=== PATIENT | male | born 1990 | race Caucasian/White ===

== ENCOUNTER 2019-01-04 14:56 | Emergency (ER) | payer OTHER ==
[2019-01-04] MEDS ORDERED: IBUPROFEN 400 MG TABLET (FP) PO ONE ×3 (15:27→16:33)
--- NOTE | 2019-01-04 15:28 | PDOC ---
Rapid Medical Evaluation Chief Complaint: Cold Symptoms Time Seen by Provider: 01/04/19 15:27 Medical Evaluation: 01/04/19 15:27 I have performed a brief in-person evaluation of this patient. The patient presents with a chief complaint of:sore throat w fever Pertinent physical exam findings:R tonsilar enlargement w/ T 102 F I have ordered the following:motrin, strep sent The patient will proceed to the ED for further evaluation. Discharge Disposition - Diagnosis Pharyngitis Qualifiers: Pharyngitis/tonsillitis etiology: other specified organisms Qualified Code(s): J02.8 - Acute pharyngitis due to other specified organisms - Referrals - Patient Instructions - Post Discharge Activity
[2019-01-04 15:36] VITALS: BP 132/72; PULSE 124; TEMP 102.7; BMI 28.8
[2019-01-04] MEDS ORDERED: PENICILLIN G BENZATHINE 1,200,000 UNIT/2 ML PFS IM ONE (16:29)
[2019-01-04] MEDS ORDERED: DEXAMETHASONE LIQUID 0.5 MG/5 ML 240 ML BULK BOTTLE PO ONE (16:29)
--- NOTE | 2019-01-04 16:32 | PDOC ---
History of Present Illness - General Chief Complaint: Cold Symptoms Stated Complaint: FEVER Time Seen by Provider: 01/04/19 15:27 - History of Present Illness Initial Comments: 01/04/19 16:29 When he 8-year-old male without comorbidities presents for evaluation of sore throat with fever at home. Past History - Past Medical History Allergies/Adverse Reactions: Allergies Allergy/AdvReac Type Severity Reaction Status Date / Time No Known Allergies Allergy Verified 01/04/19 16:25 Home Medications: Ambulatory Orders NK [No Known Home Medication] 01/04/19 COPD: No CHF: No - Suicide/Smoking/Psychosocial Hx Smoking History: Never smoked Have you smoked in the past 12 months: No Information on smoking cessation initiated: No Hx Alcohol Use: No Drug/Substance Use Hx: No Review of Systems - Review of Systems Constitutional: Yes: Fever HEENTM: Yes: Throat Pain *Physical Exam - Vital Signs Last Vital Signs Temp Pulse Resp BP Pulse Ox 102.7 F H 124 H 19 132/72 99 01/04/19 15:26 01/04/19 15:26 01/04/19 15:26 01/04/19 15:26 01/04/19 15:26 - Physical Exam Comments: 01/04/19 16:29 HEAD: NC/AT EYES: Conjuntiva clear NOSE: No d/c THROAT: Moist mucous membrances, oral erythematous with exudate, uvula midline MS: Full ROM in all joints without edema NEUROLOGIC: No gross sensory or motor deficits, NVID SKIN: Normal color and temperature no lesions or rashes Moderate Sedation - Procedure Monitoring Vital Signs: Procedure Monitoring Vital Signs Temperature 102.7 F H 01/04/19 15:26 Pulse Rate 124 H 01/04/19 15:26 Respiratory Rate 19 01/04/19 15:26 Blood Pressure 132/72 01/04/19 15:26 O2 Sat by Pulse Oximetry (%) 99 01/04/19 15:26 ED Treatment Course - Medications Given in the ED: ED Medications Discontinued Medications Generic Name Dose Route Start Last Admin Trade Name Freq PRN Reason Stop Dose Admin Ibuprofen 800 mg 01/04/19 15:27 01/04/19 15:53 Motrin - PO 01/04/19 15:28 800 mg ONCE ONE Administration *DC/Admit/Observation/Transfer Diagnosis at time of Disposition: Strep pharyngitis Pharyngitis Qualifiers: Pharyngitis/tonsillitis etiology: other specified organisms Qualified Code(s): J02.8 - Acute pharyngitis due to other specified organisms - Discharge Dispostion Disposition: HOME Condition at time of disposition: Stable Decision to Admit order: No - Referrals Referrals: Mikie Lockett [Non Staff, Medical] - - Patient Instructions Printed Discharge Instructions: Strep Throat, DI for Strep Throat Additional Instructions: You were treated today with a single dose of penicillin which will cure your strep throat. He did not require further treatment. He will also given a long- acting steroid in the emergency room which will help her pain and fever. He may use warm salt water gargles 5-6 times a day for throat pain is take Tylenol as needed and as directed. Return to the emergency room should symptoms worsen or go unresolved and follow-up with your primary care provider in one to 2 days for further evaluation and treatment options. - Post Discharge Activity
[2019-01-04] MEDS ORDERED: DEXAMETHASONE SOD PHOSPHATE 10 MG/1 ML VIAL ONE (16:33)
[2019-01-04] MEDS ORDERED: PENICILLIN G BENZATHINE 2,400,000 UNIT/4 ML PFS ONE (16:34)
== END 2019-01-04 16:53 | disposition home or self-care (01) ==
LOC: JER 14:56
DX: J02.0 Streptococcal pharyngitis (principal); B95.0 Streptococcus, group A, as the cause of diseases classified elsewhere
CPT/HCPCS: 87880; 96372; 99281-25

== ENCOUNTER 2019-05-29 21:08 | Emergency (ER) | payer OTHER ==
[2019-05-29 21:17] VITALS: BP 131/81; PULSE 76; TEMP 98.3; BMI 31.4
[2019-05-29] MEDS ORDERED: DEXAMETHASONE LIQUID 0.5 MG/5 ML 240 ML BULK BOTTLE PO ONE (21:50)
[2019-05-29] MEDS ORDERED: diphenhydrAMINE HCL 25 MG CAPSULE (FP) PO ONE ×2 (21:50→21:52)
[2019-05-29] MEDS ORDERED: DEXAMETHASONE SOD PHOSPHATE 10 MG/1 ML VIAL ONE (21:52)
--- NOTE | 2019-05-29 21:54 | PDOC ---
History of Present Illness - General Chief Complaint: Itching Stated Complaint: ITCH Time Seen by Provider: 05/29/19 21:16 - History of Present Illness Initial Comments: 05/29/19 21:50 28-year-old male without comorbidities presents for evaluation of a . Rash without systemic symptoms 2 days. Past History - Past Medical History Allergies/Adverse Reactions: Allergies Allergy/AdvReac Type Severity Reaction Status Date / Time No Known Allergies Allergy Verified 05/29/19 21:18 Home Medications: Ambulatory Orders NK [No Known Home Medication] 01/04/19 COPD: No CHF: No - Suicide/Smoking/Psychosocial Hx Smoking History: Never smoked Have you smoked in the past 12 months: No Hx Alcohol Use: No Drug/Substance Use Hx: No Review of Systems - Review of Systems Constitutional: No: Fever Integumentary: Yes: Pruritus, Rash *Physical Exam - Vital Signs Last Vital Signs Temp Pulse Resp BP Pulse Ox 98.3 F 76 18 131/81 99 05/29/19 21:14 05/29/19 21:14 05/29/19 21:14 05/29/19 21:14 05/29/19 21:14 - Physical Exam Comments: 05/29/19 21:51 HEAD: NC/AT EYES: Conjuntiva clear Ears: Canals and TM's normal NOSE: No d/c THROAT: Moist mucous membrances, oral pharanx clear, uvula midline NECK: Supple without adenopathy CARDIAC: S1 S2 LUNGS: CTA Full and Equal breath sounds ABDOMEN: Soft NT ND MS: Full ROM in all joints without edema NEUROLOGIC: No gross sensory or motor deficits, NVID SKIN: Normal color and temperature no lesions sparse raised wheals about the back and arms Medical Decision Making - Medical Decision Making 05/29/19 21:52 This appears to be an ALLERGIC rash. I will treat with steroids and Benadryl and have him follow-up with dermatology *DC/Admit/Observation/Transfer Diagnosis at time of Disposition: Rash due to allergy - Discharge Dispostion Disposition: HOME Condition at time of disposition: Stable Decision to Admit order: No - Referrals Referrals: Tania Pierre MD [Staff Physician] - - Patient Instructions Additional Instructions: This rash appears to be ALLERGIC. He was given a dose of a long-acting steroid. He will also given Benadryl. You may continue Benadryl at home and follow-up with dermatology without fail in 1-2 days. Return to the emergency room for worsening symptoms. - Post Discharge Activity
== END 2019-05-29 21:59 | disposition home or self-care (01) ==
LOC: JERFT 21:08
DX: L23.9 Allergic contact dermatitis, unspecified cause (principal)
CPT/HCPCS: 99282-25

== ENCOUNTER 2019-11-21 08:40 | Emergency (ER) | payer OTHER ==
[2019-11-21 08:55] VITALS: BP 114/67; PULSE 69; TEMP 97.9; BMI 32.3
--- NOTE | 2019-11-21 09:52 | PDOC ---
History of Present Illness - General Chief Complaint: Pain, Acute Stated Complaint: RT SIDE PAIN Time Seen by Provider: 11/21/19 09:43 History Source: Patient Exam Limitations: No Limitations Past History - Travel Traveled outside of the country in the last 30 days: No Close contact w/someone who was outside of country & ill: No - Past Medical History Allergies/Adverse Reactions: Allergies Allergy/AdvReac Type Severity Reaction Status Date / Time No Known Allergies Allergy Verified 05/29/19 21:18 Home Medications: Ambulatory Orders Ibuprofen 800 mg PO TID #30 tablet 11/21/19 Tamsulosin HCl [Flomax] 0.4 mg PO DAILY #7 capsule 11/21/19 COPD: No CHF: No - Immunization History Immunization Up to Date: No - Psycho Social/Smoking Cessation Hx Smoking History: Never smoked Have you smoked in the past 12 months: No Information on smoking cessation initiated: No Hx Alcohol Use: No Drug/Substance Use Hx: No Review of Systems - Review of Systems Able to Perform ROS?: Yes Comments:: 11/21/19 17:08 CONSTITUTIONAL: Absent: fever, chills, diaphoresis, generalized weakness, malaise, loss of appetite HEENT: Absent: rhinorrhea, nasal congestion, throat pain, throat swelling, difficulty swallowing, mouth swelling, ear pain, eye pain, visual Changes CARDIOVASCULAR: Absent: chest pain, loss of consciousness, palpitations, irregular heart rate, peripheral edema RESPIRATORY: Absent: cough, shortness of breath, dyspnea with exertion, orthopnea, wheezing, stridor, hemoptysis GASTROINTESTINAL: Absent: abdominal pain, abdominal distension, nausea, vomiting, diarrhea, constipation, melena, hematochezia GENITOURINARY: Present: Right flank pain Absent: dysuria, frequency, urgency, hesitancy, hematuria, genital pain MUSCULOSKELETAL: Absent: myalgia, arthralgia, joint swelling SKIN: Absent: rash, itching, pallor HEMATOLOGIC/IMMUNOLOGIC: Absent: easy bleeding, easy bruising, lymphadenopathy, frequent infections ENDOCRINE: Absent: unexplained weight gain, unexplained weight loss, heat intolerance, cold intolerance NEUROLOGIC: Absent: headache, focal weakness or paresthesias, dizziness, unsteady gait, seizure, mental status changes, bladder or bowel incontinence PSYCHIATRIC: Absent: anxiety, depression, suicidal or homicidal ideation, hallucinations. Is the patient limited [place] proficient: No *Physical Exam - Vital Signs Last Vital Signs Temp Pulse Resp BP Pulse Ox 97.9 F 69 18 114/67 98 11/21/19 08:52 11/21/19 08:52 11/21/19 08:52 11/21/19 08:52 11/21/19 08:52 - Physical Exam 11/21/19 17:08 GENERAL: Well developed, well nourished. Awake and alert. No acute distress. HEENT: Normocephalic, atraumatic. PERRLA, EOMI. No conjunctival pallor. Sclera are non- icteric. Moist mucous membranes. Oropharynx is clear. NECK: Supple. Full ROM. No JVD. Carotid pulses 2+ and symmetric, without bruits. No thyromegaly. No lymphadenopathy. CARDIOVASCULAR: Regular rate and rhythm. No murmurs, rubs, or gallops. Distal pulses are 2+ and symmetric. PULMONARY: No evidence of respiratory distress. Lungs clear to auscultation bilaterally. No wheezing, rales or rhonchi. ABDOMINAL: TTP of the R flank without CVA tenderness. Soft. Non-tender. Non-distended. No rebound or guarding. No organomegaly. Normoactive bowel sounds. MUSCULOSKELETAL Normal range of motion at all joints. No bony deformities or tenderness. No CVA tenderness. EXTREMITIES: No cyanosis. No clubbing. No edema. No calf tenderness. SKIN: Warm and dry. Normal capillary refill. No rashes. No jaundice. NEUROLOGICAL: Alert, awake, appropriate. Cranial nerves 2-12 intact. No deficits to light touch and temperature in face, upper extremities and lower extremities. No motor deficits in the in face, upper extremities and lower extremities. Normoreflexic in the upper and lower extremities. Normal speech. Toes are down- going bilaterally. Gait is normal without ataxia. PSYCHIATRIC: Cooperative. Good eye contact. Appropriate mood and affect. ED Treatment Course - LABORATORY CBC & Chemistry Diagram: 11/21/19 11:05 11/21/19 11:05 Medical Decision Making - Medical Decision Making 11/21/19 17:09 Patient is a 29-year-old male no past medical history who presents to the ER today for right-sided flank pain for 3 days. He states that the pain started higher in his back and has now moved towards his lower abdomen. He states that the pain is colicky and that it comes and goes. Denies nausea, vomiting and diarrhea. He states that the pain is currently a 5 out of 10 so he came to the ER for evaluation. Denies fevers, chills, sore throat, earache, difficulty breathing, chest pain and urinary symptoms. Past surgical history: None A/P: Kidney stones On exam patient with right-sided flank pain without CVA tenderness. Patient with some discomfort in the right lower quadrant as well. Lab work is unremarkable, BUN and creatinine are within normal limits. Dry CT shows multiple small stones within the upper renal collection duct of the right side We will treat as kidney stones at this time. Patient given ibuprofen and Flomax and told to follow-up with his primary care doctor. Urine is negative for infection Discharge home I discussed the physical exam findings, ancillary test results and final diagnoses with the patient. I answered all of the patient's questions. The patient was satisfied with the care received and felt comfortable with the discharge plan and treatment plan. The Patient agrees to follow up with the primary care physician/specialist within 24-72 hours. Return precautions were given. Discharge - Discharge Information Problems reviewed: Yes Clinical Impression/Diagnosis: Kidney stones Condition: Stable Disposition: HOME - Admission No - Additional Discharge Information Prescriptions: Ibuprofen 800 mg PO TID #30 tablet Tamsulosin HCl [Flomax] 0.4 mg PO DAILY #7 capsule - Follow up/Referral Referrals: Adair Alberto MD [Staff Physician] - Leo Boyd MD [Staff Physician] - - Patient Discharge Instructions Patient Printed Discharge Instructions: DI for Kidney Stones Additional Instructions: You were evaluated for your abdominal pain today. Your CT scan shows kidney stones. Please drink plenty of fluids. You may take Motrin 800 mg every 8 hours as needed for pain. Please take the Flomax once a day to help you pass the stone. Please follow-up with your primary care doctor and urology this week for further treatment and evaluation of your symptoms Return to the ER for fever, inability to urinate, worsening pain or if you have any changes in your symptoms. - Post Discharge Activity Work/Back to School Note: Back to Work
[2019-11-21] MEDS ORDERED: SODIUM CHLORIDE 1,000 ML IV STA (09:55)
[2019-11-21] MEDS ORDERED: ACETAMINOPHEN 1000 MG/100 ML VIAL (NON FORMULARY) IVPB ONE (09:55)
[2019-11-21] MEDS ORDERED: ONDANSETRON 4 MG/2 ML VIAL IVPUSH ONE (09:55)
[2019-11-21 10:39] LABS: URINE APPEARANCE CLEAR; URINE BILIRUBIN NEGATIVE (NEGATIVE); URINE COLOR YELLOW; URINE GLUCOSE (UA) NEGATIVE (NEGATIVE); URINE KETONE NEGATIVE (NEGATIVE); URINE LEUK ESTERASE NEGATIVE (NEGATIVE); URINE NITRITE NEGATIVE (NEGATIVE); URINE PROTEIN NEGATIVE (NEGATIVE)
[2019-11-21] MEDS ORDERED: ONDANSETRON 4 MG/2 ML VIAL ONE (11:01)
[2019-11-21] MEDS ORDERED: ACETAMINOPHEN INJECTION 100 ML IVPB ONE (11:01)
[2019-11-21 11:14] LABS: BASO % 0.6 % (0-2.0); EOS % 1.2 % (0-4.5); HEMATOCRIT 48.9 % (35.4-49); HEMOGLOBIN 16.4 GM/dL (11.7-16.9); MCH 28.9 pg (25.7-33.7); MCHC 33.6 g/dl (32.0-35.9); MEAN CELL VOLUME 86.2 fl (80-96); MEAN PLT VOLUME 8.3 fl (7.5-11.1); MONO % 5.2 % (3.8-10.2); PLATELET COUNT 235 K/MM3 (134-434); RBC 5.67 M/mm3 (4.00-5.60); RDW 13.4 % (11.9-15.9); WHITE BLOOD COUNT 6.9 K/mm3 (4.0-10.0)
[2019-11-21 11:27] LABS: INR 1.09 (0.83-1.09); PROTHROMBIN TIME (PATIENT) 12.9 SEC (9.7-13.0)
[2019-11-21 11:42] LABS: ALBUMIN 4.7 g/dl (3.4-5.0); BILIRUBIN,TOTAL 0.8 mg/dL (0.2-1); BLOOD UREA NITROGEN 13.8 mg/dL (7-18); CALCIUM 9.7 mg/dL (8.5-10.1); CREATININE 0.9 mg/dL (0.55-1.3); POTASSIUM 4.7 mmol/L (3.5-5.1); TOT PROT 8.3 g/dl (6.4-8.2)
== END 2019-11-21 14:39 | disposition home or self-care (01) ==
LOC: JER 08:40
PROC: 3E033NZ Introduction of Analgesics, Hypnotics, Sedatives into Peripheral Vein, Percutaneous Approach (ICD-10-PCS; principal; 2019-11-21)
PROC: 3E033GC Introduction of Other Therapeutic Substance into Peripheral Vein, Percutaneous Approach (ICD-10-PCS; 2019-11-21)
DX: N20.0 Calculus of kidney (principal)
CPT/HCPCS: 36415; 74176-TC; 80053; 81003; 85025; 85610; 87086; 99282-25; J0131; J7030

== ENCOUNTER 2023-09-02 12:53 | Emergency (ER) | payer OTHER ==
[2023-09-02 12:59] VITALS: BP 130/76; PULSE 77; RESP 18; TEMP 98; BMI 33.0
[2023-09-02 14:50] LABS: URINE APPEARANCE CLEAR; URINE BILIRUBIN NEGATIVE (NEGATIVE); URINE COLOR YELLOW; URINE GLUCOSE (UA) NEGATIVE (NEGATIVE); URINE KETONE NEGATIVE (NEGATIVE); URINE LEUK ESTERASE NEGATIVE (NEGATIVE); URINE NITRITE NEGATIVE (NEGATIVE); URINE PROTEIN NEGATIVE (NEGATIVE); URINE UROBILINOGEN 0.2 mg/dL (0.2-1.0)
== END 2023-09-02 17:46 | disposition home or self-care (01) ==
LOC: JER 12:53
DX: N50.82 Scrotal pain (principal); L72.9 Follicular cyst of the skin and subcutaneous tissue, unspecified; N50.812 Left testicular pain
CPT/HCPCS: 76870-TC; 81003; 87086; 99284-25